=== PATIENT | female | born 1970 | race American Indian/Alaskan Native ===

== ENCOUNTER 2018-10-06 09:28 | Emergency (ER) | payer BC ==
[~2018-10-06] VITALS: Ht 167.6 cm; Wt 97.7 kg
[~2018-10-06 09:28] MED LIST: LORA-269 PO
[2018-10-06] MEDS ORDERED: methylPREDNISolone sod succ 125mg/2ml vial IV ONE (09:50)
[2018-10-06] MEDS ORDERED: normal saline 1000ML IV soln IVB ONE (09:50)
[2018-10-06] MEDS ORDERED: albuterol 2.5 MG/3 ML nebule NEB ONE ×2 (09:50→11:10)
[2018-10-06] MEDS ORDERED: ipratropium/albuterol 3ml nebule NEB ONE (09:50)
[2018-10-06 10:18] LABS: BASOPHILS % (AUTO) 0 % (0-1); EOSINOPHILS # (AUTO) 0.5 X10'3 (0-0.9); EOSINOPHILS % (AUTO) 9.8 % (0-6); HEMATOCRIT 41.7 % (35.0-45.0); LYMPHOCYTES # (AUTO) 0.7 X10'3 (1.1-4.8); LYMPHOCYTES % (AUTO) 12.5 % (21-51); MEAN CORPUSCULAR HEMOGLOBIN 31.7 PG (27.0-31.0); MEAN CORPUSCULAR HGB CONC 33.6 % (33.0-36.5); MEAN CORPUSCULAR VOLUME 94.2 FL (78-98); MEAN PLATELET VOLUME 7.4 FL (7.4-10.4); MONOCYTES # (AUTO) 0.2 X10'3 (0-0.9); NEUTROPHILS # (AUTO) 4.1 X10'3 (1.8-7.7); NEUTROPHILS % (AUTO) 73.7 % (42-75); PLATELET COUNT 225 X10'3 (140-440); RED BLOOD COUNT 4.42 X10'6 (4.20-5.60); RED CELL DISTRIBUTION WIDTH 13.6 % (11.5-14.5); WHITE BLOOD COUNT 5.6 X10'3 (4.5-11.0)
[2018-10-06 10:31] LABS: INR 0.9 INR; PARTIAL THROMBOPLASTIN TIME 25 SECONDS (22-32); PROTHROMBIN TIME 9.1 SECONDS (9.0-12.0)
[2018-10-06 10:33] LABS: ALANINE AMINOTRANSFERASE 29 U/L (12-78); ALBUMIN 3.9 G/DL (3.4-5.0); ALBUMIN/GLOBULIN RATIO 0.8 (1.1-1.5); ALKALINE PHOSPHATASE 69 IU/L (46-116); ANION GAP 13 (8-16); ASPARTATE AMINO TRANSFERASE 24 U/L (10-37); BILIRUBIN,TOTAL 0.4 MG/DL (0.1-1.0); BLOOD UREA NITROGEN 14 MG/DL (7-18); BUN/CREATININE RATIO 16.9 (6.6-38.0); CHLORIDE 99 MMOL/L (99-107); CREATININE 0.83 MG/DL (0.40-0.90); GLUCOSE 150 MG/DL (70-104); POTASSIUM 3.4 MMOL/L (3.5-5.1); SODIUM 139 MMOL/L (135-145); TOTAL CARBON DIOXIDE 26.8 MMOL/L (24-32); TOTAL PROTEIN 8.5 G/DL (6.4-8.2); eGFR 73 ML/MIN
[2018-10-06] MEDS ORDERED: ALBU18HF2 INH (12:49)
[2018-10-06] MEDS ORDERED: PRED20TA PO (12:49)
[2018-10-06 13:33] VITALS: BP 132/79
== END 2018-10-06 13:38 | disposition home or self-care (01) ==
LOC: ER 09:28
DX: J45.909 Unspecified asthma, uncomplicated (principal); I10 Essential (primary) hypertension; F12.10 Cannabis abuse, uncomplicated; R07.2 Precordial pain
CPT/HCPCS: 36415; 71045; 80053; 83880; 84484; 85025; 85610; 85730; 93005; 94640; 94760; 96374; 99284; J2930; J7030

== ENCOUNTER 2020-03-31 23:32 | Emergency (ER) | payer BC ==
[~2020-03-31] VITALS: Ht 167.6 cm; Wt 109.0 kg
[~2020-03-31 23:32] MED LIST changes: +ALBU18HF2 INH
[2020-03-31 23:34] VITALS: BP 148/100
[2020-04-01] MEDS ORDERED: ACET-3067 PO (00:18)
[2020-04-01] MEDS ORDERED: ketorolac trometh inj. 60 MG/2 ML VIAL IM ONE (00:20)
== END 2020-04-01 00:52 | disposition home or self-care (01) ==
LOC: ER 23:32
DX: S83.92XA Sprain of unspecified site of left knee, initial encounter (principal); M25.562 Pain in left knee; M25.462 Effusion, left knee; I10 Essential (primary) hypertension; F12.90 Cannabis use, unspecified, uncomplicated; Z72.89 Other problems related to lifestyle; Z79.899 Other long term (current) drug therapy; W01.0XXA Fall on same level from slipping, tripping and stumbling without subsequent striking against object, initial encounter; Y93.89 Activity, other specified; Y92.89 Other specified places as the place of occurrence of the external cause; Y99.8 Other external cause status
CPT/HCPCS: 73564; 96372; 99283; J1885

== ENCOUNTER 2021-03-28 07:28 | Emergency (ER) | payer BC ==
[~2021-03-28] VITALS: Ht 167.6 cm; Wt 111.4 kg
[2021-03-28 08:38] LABS: ALANINE AMINOTRANSFERASE 68 U/L (12-78); ALBUMIN 3.9 G/DL (3.4-5.0); ALKALINE PHOSPHATASE 70 IU/L (46-116); ANION GAP 12 (8-16); ASPARTATE AMINO TRANSFERASE 54 U/L (10-37); BILIRUBIN,TOTAL 0.5 MG/DL (0.1-1.0); BLOOD UREA NITROGEN 14 MG/DL (7-18); BUN/CREATININE RATIO 14.7 (6.6-38.0); CALCIUM 9.1 MG/DL (8.5-10.1); CHLORIDE 100 MMOL/L (99-107); CREATININE 0.95 MG/DL (0.40-0.90); GLUCOSE 102 MG/DL (70-104); POTASSIUM 3.5 MMOL/L (3.5-5.1); SODIUM 140 MMOL/L (135-145); TOTAL CARBON DIOXIDE 27.8 MMOL/L (24-32); eGFR 62 ML/MIN
[2021-03-28] MEDS ORDERED: normal saline 1000ML IV soln IVB ONE (08:40)
[2021-03-28 08:44] LABS: BASOPHILS % (AUTO) 0.9 % (0-1); EOSINOPHILS # (AUTO) 0.2 X10'3 (0-0.9); EOSINOPHILS % (AUTO) 4.1 % (0-6); HEMATOCRIT 37.9 % (35.0-45.0); LYMPHOCYTES # (AUTO) 0.8 X10'3 (1.1-4.8); LYMPHOCYTES % (AUTO) 15.8 % (21-51); MEAN CORPUSCULAR HGB CONC 34.2 g/dL (33.0-36.5); MEAN CORPUSCULAR VOLUME 99.6 FL (78-98); MEAN PLATELET VOLUME 7.4 FL (7.4-10.4); MONOCYTES # (AUTO) 0.4 X10'3 (0-0.9); MONOCYTES % (AUTO) 7.9 % (2-12); NEUTROPHILS # (AUTO) 3.5 X10'3 (1.8-7.7); NEUTROPHILS % (AUTO) 71.3 % (42-75); PLATELET COUNT 211 X10'3 (140-440); RED BLOOD COUNT 3.81 X10'6 (4.20-5.60); RED CELL DISTRIBUTION WIDTH 13.3 % (11.5-14.5); WHITE BLOOD COUNT 4.9 X10'3 (4.5-11.0)
[2021-03-28 09:19] LABS: ETHANOL < 0.010 GM/DL (0.0-0.010)
[2021-03-28 09:53] LABS: CLARITY,URINE SLIGHTLY CLOUDY (Clear); COLOR,URINE YELLOW (Yellow); GLUCOSE, URINE NEGATIVE (Neg); KETONES,URINE TRACE mg/dl (Neg); LEUKOCYTE ESTERASE ,URINE MODERATE (Neg); NITRITES, URINE POSITIVE (Neg); OCCULT BLOOD,URINE NEGATIVE (Neg); PH,URINE 6.5 (4.8-8.0); PROTEIN,URINE NEGATIVE (Neg); UROBILINOGEN,URINE 0.2 E.U/dL (0.2-1.0)
[2021-03-28 09:55] LABS: UA COLLECTION TYPE CLN CATCH MIDSTREAM
[2021-03-28 09:59] LABS: BACTERIA,URINE 4+ /HPF (Neg); MUCUS STRANDS NONE SEEN /LPF (Neg); RBC,URINE NONE SEEN /HPF (0-2); SQUAMOUS EPITHELIAL CELL,UR MODERATE /LPF (FEW); WBC,URINE TNTC /HPF (0-4)
[2021-03-28 10:04] VITALS: BP 150/94
[2021-03-28 10:07] LABS: URINE AMPHETAMINE SCREEN NEGATIVE (Neg); URINE BARBITUATE SCREEN NEGATIVE (Neg); URINE BENZODIAZEPINES SCREEN NEGATIVE (Neg); URINE CANNABINOID SCREEN POSITIVE (Neg); URINE COCAINE SCREEN NEGATIVE (Neg); URINE METHADONE SCREEN NEGATIVE (Neg); URINE OPIATE SCREEN NEGATIVE (Neg); URINE PHENCYCLIDINE SCREEN NEGATIVE (Neg)
== END 2021-03-28 10:13 | disposition home or self-care (01) ==
LOC: ER 07:29
DX: T67.5XXA Heat exhaustion, unspecified, initial encounter (principal); E86.0 Dehydration; R42 Dizziness and giddiness; R55 Syncope and collapse; I10 Essential (primary) hypertension; F12.90 Cannabis use, unspecified, uncomplicated; Z72.89 Other problems related to lifestyle; Z79.899 Other long term (current) drug therapy; X58.XXXA Exposure to other specified factors, initial encounter; Y93.89 Activity, other specified; Y92.89 Other specified places as the place of occurrence of the external cause; Y99.8 Other external cause status
CPT/HCPCS: 36415; 71045; 80053; 80305; 80320; 81001; 83880; 84484; 85025; 93005; 99285; J7030

== ENCOUNTER 2021-12-21 04:42 | Emergency (ER) | payer BC, OTHER ==
[~2021-12-21] VITALS: Ht 167.6 cm; Wt 245.0 kg
--- NOTE | 2021-12-21 05:00 | NUR ---
Urine collected and sent
[2021-12-21 05:05] VITALS: BP 168/111
--- NOTE | 2021-12-21 05:30 | NUR ---
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 The pt is a/o, nad, denies sorethroat, fever/chills, cp, n/v/d, or gu symptoms; skin is w/d; pt provided a urine cup; placed on monitor. malcolm carrillo.
--- NOTE | 2021-12-21 06:20 | NUR ---
ASSUMED CARE OF PT. PT. LAYING IN BED AND DID NOT APPEAR IN ANY DISTRESS. AWAITING MD RE-EVAL.
[2021-12-21 06:47] LABS: URINE AMPHETAMINE SCREEN NEGATIVE (Neg); URINE BARBITUATE SCREEN NEGATIVE (Neg); URINE BENZODIAZEPINES SCREEN NEGATIVE (Neg); URINE CANNABINOID SCREEN POSITIVE (Neg); URINE COCAINE SCREEN NEGATIVE (Neg); URINE METHADONE SCREEN NEGATIVE (Neg); URINE OPIATE SCREEN POSITIVE (Neg); URINE PHENCYCLIDINE SCREEN NEGATIVE (Neg)
== END 2021-12-21 07:54 | disposition home or self-care (01) ==
LOC: ER 04:43
DX: F11.90 Opioid use, unspecified, uncomplicated (principal); F12.90 Cannabis use, unspecified, uncomplicated; R42 Dizziness and giddiness; R06.02 Shortness of breath; R55 Syncope and collapse; I10 Essential (primary) hypertension; Z72.89 Other problems related to lifestyle; Z79.899 Other long term (current) drug therapy
CPT/HCPCS: 80305; 99283

== ENCOUNTER 2022-10-11 17:10 | Emergency (ER) | payer OTHER ==
[~2022-10-11] VITALS: Ht 167.6 cm; Wt 111.4 kg
[2022-10-11 17:27] VITALS: BP 130/77
--- NOTE | 2022-10-11 19:29 | NUR ---
Patient left without being seen. Plans to go to [facility] for care.
== END 2022-10-11 19:34 | disposition left against medical advice (07) ==
LOC: ER 17:10
DX: M25.561 Pain in right knee (principal); Z53.21 Procedure and treatment not carried out due to patient leaving prior to being seen by health care provider